=== PATIENT | female | born 1990 | race American Indian/Alaskan Native ===

== ENCOUNTER 2018-04-13 13:43 | Emergency (ER) | payer SELFPAY ==
--- NOTE | 2018-04-13 17:09 | Emergency Department Report ---
HPI - General Chief Complaint: Skin Rash - HPI HPI: Room 32 The patient is a 27-year-old female presenting with chief rash. The patient states she has to wear gloves at work for 1 months she's noticed a rash on bilateral forearms around her neck and bilateral earlobes. 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 Patient states her rash is pruritic. Patient denies history of fever Location: [See above] Duration: One month Quality: Pruritic Severity: Moderate Modifying factors: [see above] Context: [see above] Mode of transportation: [not driving] ED Past Medical Hx - Past Medical History Previous Medical History?: No - Surgical History Past Surgical History?: No - Family History Family history: no significant - Social History Smoking Status: Former Smoker (none 5 months) Substance Use Type: Alcohol (occasional), Marijuana - Medications Home Medications: Home Medications Medication Instructions Recorded Confirmed Last Taken Type Ibuprofen [Motrin] 400 mg PO TID PRN 02/27/13 02/27/13 02/27/13 History Famotidine [Pepcid] 20 mg PO BID #6 tablet 04/13/18 Unknown Rx Prednisone [predniSONE 10 mg 10 mg PO .TAPER #1 tab.ds.pk 04/13/18 Unknown Rx (6-Day Pack, 21 Tabs)] diphenhydrAMINE [Benadryl CAP] 50 mg PO Q6HR #24 capsule 04/13/18 Unknown Rx ED Review of Systems ROS: Stated complaint: ALLERGY REACTION Other details as noted in HPI Constitutional: denies: fever Eyes: denies: eye pain ENT: denies: throat pain Respiratory: no symptoms reported Cardiovascular: denies: chest pain Endocrine: no symptoms reported Gastrointestinal: denies: abdominal pain Genitourinary: denies: dysuria Skin: rash, pruritus Neurological: denies: headache Physical Exam - Physical Exam Vital Signs: Vital Signs 04/13/18 13:48 Temperature 98.2 F Pulse Rate 84 Respiratory 18 Rate Blood Pressure 122/81 O2 Sat by Pulse 99 Oximetry Physical Exam: GENERAL: The patient is well-developed well-nourished female sitting on stretcher not appearing to be in acute distress. [] HEENT: Normocephalic. Atraumatic. Extraocular motions are intact. Patient has moist mucous membranes. NECK: Supple. Trachea midline CHEST/LUNGS: Clear to auscultation. There is no respiratory distress noted. HEART/CARDIOVASCULAR: Regular. There is no tachycardia. There is no gallop rub or murmur. ABDOMEN: Abdomen is soft, nontender. Patient has normal bowel sounds. There is no abdominal distention. SKIN: There is mild erythematous rash to bilateral forearms around the base of the neck and bilateral earlobes. There is no edema. There is no diaphoresis. NEURO: The patient is awake, alert, and oriented. The patient is cooperative. The patient has normal speech MUSCULOSKELETAL: There is no evidence of acute injury. ED Course Vital Signs 04/13/18 13:48 Temperature 98.2 F Pulse Rate 84 Respiratory 18 Rate Blood Pressure 122/81 O2 Sat by Pulse 99 Oximetry ED Medical Decision Making - Differential Diagnosis allergic reaction Critical care attestation.: If time is entered above; I have spent that time in minutes in the direct care of this critically ill patient, excluding procedure time. ED Disposition Clinical Impression: Acute allergic reaction Disposition: DC-01 TO HOME OR SELFCARE Is pt being admited?: No Does the pt Need Aspirin: No Condition: Stable Instructions: Urticaria (ED), Allergies (ED) Additional Instructions: Return to the emergency department immediately should you develop worsening symptoms, fever, inability to tolerate food or liquid or any other concerns. Prescriptions: diphenhydrAMINE [Benadryl CAP] 50 mg PO Q6HR #24 capsule Famotidine [Pepcid] 20 mg PO BID #6 tablet Prednisone [predniSONE 10 mg (6-Day Pack, 21 Tabs)] 10 mg PO .TAPER #1 tab.ds.pk Referrals: NICKI RUDOLPH DO [Staff Physician] - 3-5 Days (Dr. Rudolph is a primary physician. Please follow up with him to be established as a patient) ELIEZER WOLF MD [Staff Physician] - [facility] (Dr Wolf is an emt i/99. Please follow up with her for further evaluation) Time of Disposition: 17:10
== END 2018-04-13 17:26 | disposition home or self-care (01) ==
LOC: ED 13:43
CPT/HCPCS: 99282